=== PATIENT | female | born 1995 | race Two or more races ===

== ENCOUNTER 2019-10-23 04:32 | Inpatient (IN) | payer BC, MEDICAID ==
[~2019-10-23] VITALS: Ht 172.7 cm; Wt 124.0 kg
[2019-10-23 06:14] LABS: Urine Bacteria NONE SEEN /hpf (None Seen); Urine Blood 1+ /uL (Negative); Urine Specific Gravity 1.024 (1.001-1.035); Urine WBC 1 /hpf (0 - 5)
[2019-10-23] MEDS ORDERED: ONDANSETRON HCL 4 MG/2 ML VIAL IV ONE (07:00)
[2019-10-23] MEDS ORDERED: KETOROLAC TROMETH 30 MG/ML 1ML VIAL IV ONE (07:00)
[2019-10-23] MEDS ORDERED: SODIUM CHLORIDE 0.9% 1,000 ML IV ONE (07:00)
[2019-10-23 07:17] LABS: Basophils # (auto) 0.1 10 ^3/uL (0-0.2); Basophils % (auto) 0.4 % (0.0-2.0); Eosinophils # (auto) 0.2 10 ^3/uL (0-0.8); Monocytes # (auto) 0.7 10 ^3/uL (0-1.3); White Blood Cell 12.4 10^3/uL (4.4-10.8)
[2019-10-23 07:18] LABS: Eosinophils % (auto) 1.9 % (0.0-7.0); Hemoglobin 12.3 g/dL (12.2-16.2); Lymphocytes # (auto) 1.7 10 ^3/uL (0.4-5.4); Lymphocytes % (auto) 13.8 % (10.0-50.0); Mean Corpuscular Hemoglobin 25.9 pg (28.0-32.0); Mean Corpuscular Hgb Conc. 31.5 g/dL (32.0-36.0); Mean Corpuscular Volume 82.5 fL (80.0-100.0); Monocytes % (auto) 5.5 % (0.0-12.0); Neutrophils # (auto) 9.8 10 ^3/uL (1.6-8.6); Neutrophils % (auto) 78.4 % (37.0-80.0); Platelet Count (auto) 394 10^3/uL (140-450); Red Blood Cells 4.73 10^6/uL (4.0-5.20); Red Cell Distribution Width 13.4 % (11.8-14.3)
[2019-10-23 07:33] LABS: Albumin 3.7 g/dL (3.4-5.0); BUN/Creatinine Ratio 12.7
[2019-10-23 07:35] LABS: Bilirubin, Total 0.4 mg/dL (0.2-1.0); Total Protein 8.3 g/dL (6.4-8.2)
[2019-10-23] MEDS ORDERED: cefTRIAXone 1GM/50ML D5W 50 ML IV ONE (08:30)
[2019-10-23] MEDS ORDERED: MORPHINE SULF INJ 2 MG/ML SYRINGE 1ML IV PRN (10:00)
[2019-10-23] MEDS ORDERED: DEXTROSE (50%) 50ML SYRG IV PRN (10:00)
[2019-10-23 10:31] LABS: INR 0.95 (0.9-1.15); Partial Thromboplastin Time 32.2 sec (23.0-31.2)
[2019-10-23] MEDS: ACCU-CHEK COMFORT CURVE STRIP VI SCH ×2 (11:44→19:00)
[2019-10-23] MEDS: SODIUM CHLORIDE 0.9% 1,000 ML IV SCH ×2 (11:59→19:48)
[2019-10-23] MEDS: FAMOTIDINE (10MG/ML) 2ML VL IV SCH ×2 (12:55→21:19)
[2019-10-23] MEDS: metroNIDAZOLE 500MG/100ML 100 ML IV SCH ×2 (14:08→21:20)
--- NOTE | 2019-10-23 16:50 | NUR ---
[facility] admit from ER ARMIDA MORA admitted to [facility]. Patient oriented to Violetta lopez RN, unit, room, bed, and unit policies regarding patient care and visiting hours. Patient weighed by bed scale. Instructed patient on POC, fall precautions and to call for assistance as needed. Patient verbalized understanding.
[2019-10-23 17:30] VITALS: BP 136/70
[2019-10-23 18:02] VITALS: BP 136/70
--- NOTE | 2019-10-23 18:37 | NUR ---
Closing note Patient sitting in chair at bedside with even and unlabored respirations, no distress noted. Fall precautions in place with call light within reach.
--- NOTE | 2019-10-23 19:06 | NUR ---
Care endorsed to ARCADIO Khalil.
--- NOTE | 2019-10-23 19:30 | NUR ---
Opening Shift Note Assumed care of patient, awake and alert x4. No S/S of distress/SOB or pain. Call light is within reach, side rails up x2, bed is in the lowest position. Instructed on POC and to call for assist PRN, will continue to monitor for changes Q1hr and PRN.
[2019-10-23] MEDS: PROMETHAZINE HCL 25 MG/ML 1ML IV PRN (21:19)
[2019-10-23] MEDS: MORPHINE SULF INJ 2 MG/ML SYRINGE 1ML IV PRN (21:20)
[2019-10-23 21:24] VITALS: BP 101/52
[2019-10-24] MEDS: ACCU-CHEK COMFORT CURVE STRIP VI SCH ×4 (00:09→16:57)
[2019-10-24 05:08] VITALS: BP 131/76
[2019-10-24] MEDS: SODIUM CHLORIDE 0.9% 1,000 ML IV SCH ×2 (05:11→16:25)
[2019-10-24] MEDS: metroNIDAZOLE 500MG/100ML 100 ML IV SCH ×3 (05:46→22:13)
[2019-10-24 06:03] LABS: Basophils # (auto) 0 10 ^3/uL (0-0.2); Eosinophils # (auto) 0.2 10 ^3/uL (0-0.8); Eosinophils % (auto) 2.9 % (0.0-7.0); Hemoglobin 11.1 g/dL (12.2-16.2); Lymphocytes # (auto) 1.4 10 ^3/uL (0.4-5.4); Monocytes # (auto) 0.5 10 ^3/uL (0-1.3); Neutrophils % (auto) 72.4 % (37.0-80.0)
[2019-10-24 06:05] LABS: Basophils % (auto) 0.4 % (0.0-2.0); Hematocrit 33.7 % (36.0-46.0); Lymphocytes % (auto) 18.4 % (10.0-50.0); Mean Corpuscular Hemoglobin 26.9 pg (28.0-32.0); Mean Corpuscular Hgb Conc. 32.9 g/dL (32.0-36.0); Mean Corpuscular Volume 81.5 fL (80.0-100.0); Monocytes % (auto) 5.9 % (0.0-12.0); Neutrophils # (auto) 5.5 10 ^3/uL (1.6-8.6); Nucleated Red Blood Cells % 0.1 %; Platelet Count (auto) 343 10^3/uL (140-450); Red Blood Cells 4.13 10^6/uL (4.0-5.20); Red Cell Distribution Width 13.5 % (11.8-14.3); White Blood Cell 7.6 10^3/uL (4.4-10.8)
[2019-10-24 06:23] LABS: Calcium 8.2 mg/dL (8.5-10.1); Potassium 3.6 mmol/L (3.5-5.1)
[2019-10-24 06:27] LABS: BUN/Creatinine Ratio 13.6; Bilirubin, Total 0.5 mg/dL (0.2-1.0); Total Protein 6.9 g/dL (6.4-8.2)
--- NOTE | 2019-10-24 07:55 | NUR ---
Opening Note Assumed pt care from NOC RN. PT is a/ox4 with no s/s of distress of SOB. Pt is currently sitting upright in bed with no complaints at this time. Discussed POC with pt; pending surgical and GI consult, pt verbalized understanding. Pt has been NPO since admission. Safety measures maintained with call light within reach, bed in lowest position and side rails up. Will continue to monitor for changes.
[2019-10-24 08:00] VITALS: BP 118/73
[2019-10-24] MEDS: cefTRIAXone 1GM/50ML D5W 50 ML IV SCH (08:43)
[2019-10-24] MEDS: FAMOTIDINE (10MG/ML) 2ML VL IV SCH ×2 (08:43→22:12)
[2019-10-24 12:00] VITALS: BP 127/64
--- NOTE | 2019-10-24 14:26 | NUR ---
Dr Wagner at Bedside MD to see pt. Plans for procedure tomorrow morning, 10/24. MD requests that pt be on Clear liquid diet until dinner, then NPO after 0000. Will implement and continue to monitor.
--- NOTE | 2019-10-24 14:55 | NUR ---
COVID SWAB WALKED TO LAB
[2019-10-24 17:00] VITALS: BP 133/68
--- NOTE | 2019-10-24 18:16 | NUR ---
IV Insertion and Removal 20G to pt's L FA inserted using clean/sterile technique. One attempt made and pt tolerated well. 20G to pt's R AC D/C'ed. Catheter was removed fully intact. Site is asymptomatic. Pressure was applied to site for 3 minutes with gauze and then wrapped in coban. Pt instructed to keep dressing on for 30 minutes.
--- NOTE | 2019-10-24 20:00 | NUR ---
Opening Shift Note Assumed care of patient, awake and alert. Patient up ambulating to BR and preparing for shower. No S/S of distress/SOB or pain. Instructed on POC and to call for assist PRN, will continue to monitor for changes Q1hr and PRN.
[2019-10-24 22:00] VITALS: BP 142/77
[2019-10-24] MEDS: PROMETHAZINE HCL 25 MG/ML 1ML IV PRN (22:12)
--- NOTE | 2019-10-24 22:12 | NUR ---
Patient complains of severe nausea. Medicated with Phenergan 12.5 mg IVP.
--- NOTE | 2019-10-24 23:00 | NUR ---
Patient resting comfortably. No distress noted.
--- NOTE | 2019-10-25 | NUR ---
Patient informed of NPO status for surgical procedure today. Patient verbalized understanding.
[2019-10-25] MEDS: SODIUM CHLORIDE 0.9% 1,000 ML IV SCH ×3 (01:48→21:26)
[2019-10-25 05:00] VITALS: BP 123/90
[2019-10-25] MEDS: ACCU-CHEK COMFORT CURVE STRIP VI SCH ×4 (06:00→18:00)
[2019-10-25] MEDS: metroNIDAZOLE 500MG/100ML 100 ML IV SCH ×3 (06:16→21:14)
--- NOTE | 2019-10-25 06:41 | NUR ---
Closing Note: Patient resting. No distress noted. AM Accucheck 88mg/dl.
[2019-10-25 07:00] LABS: Albumin 3.3 g/dL (3.4-5.0); Calcium 8.5 mg/dL (8.5-10.1); Potassium 3.8 mmol/L (3.5-5.1)
[2019-10-25 07:04] LABS: BUN/Creatinine Ratio 8.3; Bilirubin, Total 0.4 mg/dL (0.2-1.0); Total Protein 7.2 g/dL (6.4-8.2)
[2019-10-25 09:00] VITALS: BP 120/86
[2019-10-25] MEDS: FAMOTIDINE (10MG/ML) 2ML VL IV SCH ×2 (09:10→21:14)
[2019-10-25] MEDS: cefTRIAXone 1GM/50ML D5W 50 ML IV SCH (09:10)
[2019-10-25 13:00] VITALS: BP 121/65
--- NOTE | 2019-10-25 14:04 | NUR ---
Nutrition Assessment Note please see attached link for complete assessment [employer] needs ABW 91 [id number] kcals (17-20 kcal/kgABW), Est Protein needs: 91-100 gms/day (1.0-1.1 gm/kgABW). Will continue to monitor and reassess prn. Addendum: 10/25/19 at [address] Amended: Links added.
--- NOTE | 2019-10-25 16:08 | NUR ---
Patient taken to OR for scheduled procedure with MD Wagner. No s/s of sob/distress at this time.
[2019-10-25] MEDS ORDERED: ceFAZolin 1GM/50ML 50 ML IV ONE (16:09)
[2019-10-25] MEDS ORDERED: BUPIVACAINE 0.25% INJ 50ML VIAL ONE (16:16)
[2019-10-25] MEDS ORDERED: SUCCINYLCHOLINE CHLORIDE 20 MG/ML 10ML VIAL IV ONE (16:22)
[2019-10-25] MEDS ORDERED: fentaNYL CITRATE 100 MCG/2 ML VL ONE ×2 (17:25→17:26)
[2019-10-25] MEDS ORDERED: MIDAZOLAM HCL 1MG/1ML-2 ML VIAL ONE (17:25)
[2019-10-25] MEDS ORDERED: LABETALOL HCL 5 MG/ML ML 20ML VIAL IV ONE (17:35)
[2019-10-25] MEDS ORDERED: PROPOFOL 10 MG/ML 20 ML IV ONE (17:35)
[2019-10-25] MEDS ORDERED: ROCURONIUM 10MG/ML 10ML VIAL IV ONE (17:52)
[2019-10-25] MEDS ORDERED: GLYCOPYRROLATE 0.2 MG/ML 1ML VIAL ONE (18:12)
[2019-10-25] MEDS ORDERED: NEOSTIGMINE 1 MG/ML INJ (10mg/10ML VIAL) ONE (18:12)
[2019-10-25] MEDS ORDERED: ONDANSETRON HCL 4 MG/2 ML VIAL ONE (18:14)
[2019-10-25] MEDS ORDERED: METOCLOPRAMIDE HCL 5MG/ml INJ 2ml VIAL IV PRN (19:00)
[2019-10-25] MEDS ORDERED: LABETALOL HCL 5 MG/ML 4ML SYRINGE IV PRN (19:00)
[2019-10-25] MEDS ORDERED: HYDROmorphone HCL 2 MG/ML VL IV PRN (19:00)
[2019-10-25] MEDS ORDERED: HYDROmorphone HCL 2 MG/ML VL ONE (19:00)
[2019-10-25] MEDS: HYDROmorphone HCL 2 MG/ML VL IV PRN ×4 (19:01→19:38)
--- NOTE | 2019-10-25 19:17 | NUR ---
Received call from laboratory apparatus glass blowerARCADIO Blair to endorse to NOC ARCADIO Fountain to picking machine operator helper patient from recovery at 20:15. Essie RN verbalized understanding.
[2019-10-25] MEDS: PROMETHAZINE HCL 25 MG/ML 1ML IV PRN (21:14)
[2019-10-25] MEDS: MORPHINE SULF INJ 2 MG/ML SYRINGE 1ML IV PRN (21:14)
--- NOTE | 2019-10-25 21:30 | NUR ---
RECEIVED PATIENT, A/OX4, S/P LAP FELIPE, LAP INCISIONS X4 WITH DERMABOND, CLEAN, DRY AND INTACT, C/O ABDOMINAL PAIN, MEDICATED WITH MORPHINE IV ORDERED. PT IS TOLERATING CLEAR LIQUID DIET, SCD ON, AMBULATED TO THE BATHROOM WITH STAND BY ASSIST. VITAL SIGNS ARE STABLE.
[2019-10-25 22:00] VITALS: BP 128/84
--- NOTE | 2019-10-25 22:01 | NUR ---
Placed pt on bedside continuous pox. Per MD order, Pt is s/p surgery. Probe on left index finger. Pox 97-98%, hr in 90s, rr 18-20. RN Beth communicated on placement.
[2019-10-26] MEDS: ACCU-CHEK COMFORT CURVE STRIP VI SCH ×4 (00:26→17:49)
[2019-10-26] MEDS: SODIUM CHLORIDE 0.9% 1,000 ML IV SCH ×2 (01:48→14:15)
[2019-10-26 05:00] VITALS: BP 130/73
[2019-10-26] MEDS: metroNIDAZOLE 500MG/100ML 100 ML IV SCH ×3 (05:45→21:07)
[2019-10-26] MEDS: PROMETHAZINE HCL 25 MG/ML 1ML IV PRN ×2 (05:46→09:59)
--- NOTE | 2019-10-26 06:53 | NUR ---
PT CONNECTED TO CONTINUOUS PULSE OX AT BEDSIDE. PT IS ON 2LNC, SPO2 99%, HR 75, RR 20.
[2019-10-26 07:45] LABS: Hematocrit 33.9 % (36.0-46.0); Hemoglobin 11.2 g/dL (12.2-16.2)
[2019-10-26 08:08] LABS: Albumin 3.1 g/dL (3.4-5.0); Calcium 8.6 mg/dL (8.5-10.1); Magnesium 2.1 mg/dL (1.6-2.6); Potassium 3.4 mmol/L (3.5-5.1)
[2019-10-26 08:13] LABS: Bilirubin, Total 0.4 mg/dL (0.2-1.0); Total Protein 6.8 g/dL (6.4-8.2)
[2019-10-26 09:16] VITALS: BP 112/69
[2019-10-26] MEDS: cefTRIAXone 1GM/50ML D5W 50 ML IV SCH (10:00)
[2019-10-26] MEDS: MORPHINE SULF INJ 2 MG/ML SYRINGE 1ML IV PRN (10:00)
[2019-10-26] MEDS: FAMOTIDINE (10MG/ML) 2ML VL IV SCH ×2 (10:00→21:07)
--- NOTE | 2019-10-26 12:05 | NUR ---
Hospitalist Rounded Dr. De Luna at bedside.
[2019-10-26 13:00] VITALS: BP 106/63
[2019-10-26] MEDS ORDERED: POTASSIUM CHL 20 Meq TABLET PO ONE (13:15)
[2019-10-26] MEDS: HYDROcodone-ACET 5/325MG TAB PO PRN ×2 (14:19→21:15)
--- NOTE | 2019-10-26 14:50 | NUR ---
IV insertion wire twisting machine operator obtained IV access via clean sterile technique by inserting 20 gauge catheter at right forearm after 1 attempt(s). IV secured properly. No trauma to site. Patient tolerated well. IV to left forearm removed.
[2019-10-26 17:02] VITALS: BP 108/66
--- NOTE | 2019-10-26 19:24 | NUR ---
Closing note Patient ambulating in room uncomplaining. States she tolerated her soft diet well. Care endorsed to shift supervisor melting RN
--- NOTE | 2019-10-26 20:18 | NUR ---
Opening Shift Note Assumed care of patient, awake and alert. No S/S of distress/SOB or pain. Patient is walking independently and passing gas. Instructed on POC and to call for assist PRN, will continue to monitor for changes Q1hr and PRN.
[2019-10-26 22:00] VITALS: BP 109/84
[2019-10-27] MEDS: ACCU-CHEK COMFORT CURVE STRIP VI SCH ×3 (00:15→12:00)
[2019-10-27] MEDS: HYDROcodone-ACET 5/325MG TAB PO PRN ×2 (01:02→09:06)
[2019-10-27 05:00] VITALS: BP 116/80
[2019-10-27] MEDS: metroNIDAZOLE 500MG/100ML 100 ML IV SCH (06:09)
[2019-10-27] MEDS: SODIUM CHLORIDE 0.9% 1,000 ML IV SCH (06:09)
[2019-10-27 07:35] LABS: Potassium 3.8 mmol/L (3.5-5.1)
[2019-10-27 07:42] LABS: Bilirubin, Total 0.3 mg/dL (0.2-1.0)
[2019-10-27 09:00] VITALS: BP 133/90
[2019-10-27] MEDS: cefTRIAXone 1GM/50ML D5W 50 ML IV SCH (09:00)
[2019-10-27] MEDS: FAMOTIDINE (10MG/ML) 2ML VL IV SCH (09:00)
--- NOTE | 2019-10-27 10:00 | NUR ---
Hospitalist Rounding Dr. De Luna at bedside with patient.
[2019-10-27] MEDS ORDERED: LEVO500T21 PO (12:21)
[2019-10-27] MEDS ORDERED: METR500T PO (12:21)
[2019-10-27 13:00] VITALS: BP 120/72
--- NOTE | 2019-10-27 14:45 | NUR ---
Discharge instructions given as ordered. Encourage to follow up with PMD as instructed. All questions and concerns addressed. Patient verbalized understanding. Medication reconciliation form completed and copy given to patient. IV removed with catheter intact and pressure dressing applied. Telemetry unit returned to ICU. Patient taken to vehicle via wheelchair with all personal belongings, accompanied by staff. No distress noted at time of departure.
== END 2019-10-27 14:45 | disposition home or self-care (01) | DRG 418 ==
LOC: ER 04:32 → OVERFLOW 04:33 → WEST WING 16:51 → TELE-WESTW 10-25 20:56
PROVIDERS: ADMIT Internal Medicine; ATTEND Internal Medicine
PROC: 0FN Hepatobiliary System and Pancreas, Release (ICD-10-PCS; 2019-10-25)
PROC: 0FT44ZZ Resection of Gallbladder, Percutaneous Endoscopic Approach (ICD-10-PCS; principal; 2019-10-25 16:41)
DX: K80.00 Calculus of gallbladder with acute cholecystitis without obstruction (principal); R65.10 Systemic inflammatory response syndrome (SIRS) of non-infectious origin without acute organ dysfunction; Z68.41 Body mass index [BMI] 40.0-44.9, adult; K82.8 Other specified diseases of gallbladder; K66.0 Peritoneal adhesions (postprocedural) (postinfection); F12.90 Cannabis use, unspecified, uncomplicated; E66.9 Obesity, unspecified; R73.9 Hyperglycemia, unspecified; Z83.3 Family history of diabetes mellitus; Z82.49 Family history of ischemic heart disease and other diseases of the circulatory system; Z90.49 Acquired absence of other specified parts of digestive tract
CPT/HCPCS: 36415; 74176; 74181; 76705; 80053; 81001; 81025; 82150; 82247; 82962; 83036; 83690; 83735; 84132; 85014; 85018; 85025; 85610; 85730; 87426; 94762; G0378; J0330; J0690; J0696; J1885; J2250; J2405; J2704; J3490